=== PATIENT | female | born 1950 | race Caucasian/White ===

== ENCOUNTER 2021-11-04 18:16 | Emergency (ER) | payer BC, SELFPAY ==
[~2021-11-04] VITALS: Ht 160 cm; Wt 54.4 kg
[~2021-11-04 18:16] MED LIST: BUSP5TAB3 PO; LEVO25TA7 PO; TRAZ-250 PO
[2021-11-04 18:25] VITALS: BP_SYST 156
[2021-11-04] MEDS ORDERED: ASPIRIN 81 MG TAB.CHEW PO ONE (19:15)
[2021-11-04] MEDS ORDERED: PANTOPRAZOLE SODIUM 40 MG/VIAL (PROTONIX) IVP ONE (19:15)
[2021-11-04 19:16] LABS: BASOPHILS # (AUTO) 0.1 K/uL (0.0-0.2); BASOPHILS % (AUTO) 0.8 % (0.0-2.0); EOSINOPHILS # (AUTO) 0.1 K/uL (0.0-0.4); EOSINOPHILS % (AUTO) 1.4 % (0.0-4.0); HEMATOCRIT 42.7 % (36-48); HEMOGLOBIN 14.8 g/dL (12.0-16.0); LYMPHOCYTES # (AUTO) 1.4 K/uL (1.0-5.5); LYMPHOCYTES % (AUTO) 18.1 % (20.5-51.5); MEAN CORPUSCULAR HEMOGLOBIN 32 pg (27-31); MEAN CORPUSCULAR HGB CONC 35 % (32-36); MEAN CORPUSCULAR VOLUME 94 fL (79.0-98.0); MONOCYTES # (AUTO) 0.5 K/uL (0.0-1.0); MONOCYTES % (AUTO) 7.2 % (1.7-9.3); NEUTROPHILS # (AUTO) 5.5 K/uL (1.8-7.7); NEUTROPHILS % (AUTO) 72.5 % (40.0-70.0); PLATELET COUNT (AUTO) 250 K/uL (130-430); RED BLOOD CELL COUNT(AUTO) 4.55 MIL/uL (4.2-6.2); RED CELL DISTRIBUTION WIDTH 12.8 % (9.0-15.0); WHITE BLOOD COUNT (AUTO) 7.6 K/uL (4.8-10.8)
[2021-11-04 19:22] LABS: ANION GAP 8 (5-15); CALCIUM 8.8 mg/dL (8.4-11.0); CHLORIDE 104 mmol/L (98-107); CREATININE 0.65 mg/dL (0.55-1.30); GLUCOSE 86 mg/dL (70-99); POTASSIUM 3.5 mmol/L (3.5-5.1); SODIUM SERUM 137 mmol/L (136-145); UREA NITROGEN, BLOOD 24 mg/dL (8-21)
[2021-11-04 19:24] LABS: BILIRUBIN,URINE NEGATIVE (NEGATIVE); BLOOD, URINE NEGATIVE (NEGATIVE); COLOR,URINE YELLOW (YELLOW); GLUCOSE,URINE NEGATIVE (NEGATIVE); KETONES,URINE NEGATIVE (NEGATIVE); LEUKOCYTE ESTERASE ,URINE NEGATIVE (NEGATIVE); NITRITE, URINE NEGATIVE (NEGATIVE); PH,URINE 7.5 (5.0-8.0); PROTEIN URINE NEGATIVE (NEGATIVE); UROBILINOGEN,URINE 0.2 (0.2-1.0)
[2021-11-04 19:30] LABS: ALANINE AMINOTRANSFERASE 26 U/L (12-78); ALBUMIN 3.4 g/dL (3.4-4.8); ASPARTATE AMINOTRANSFERASE 21 U/L (10-37); TOTAL BILIRUBIN 0.2 mg/dL (0.0-1.0)
[2021-11-04 19:36] LABS: CLARITY/URINE CLOUDY (CLEAR)
[2021-11-04 19:37] LABS: BACTERIA,URINE RARE /HPF (None Seen); RBC,URINE 0-3 /HPF (0-3); WBC,URINE 0-3 /HPF (0-3)
[2021-11-04 19:38] LABS: MUCUS,URINE None Seen /LPF (None Seen); URINE AMORPHOUS PHOSPHATES 2+ /HPF (None Seen)
[2021-11-04] MEDS ORDERED: ONDANSETRON HCL 4 MG/2 ML VIAL IVP ONE (21:00)
[2021-11-04] MEDS ORDERED: PRO40 PO (22:27)
[2021-11-04 22:31] VITALS: BP_SYST 133
== END 2021-11-04 22:31 | disposition home or self-care (01) ==
LOC: SED 18:16
DX: R07.2 Precordial pain (principal); E03.9 Hypothyroidism, unspecified; Z79.899 Other long term (current) drug therapy
CPT/HCPCS: 36415; 71045; 80053; 81000; 83880; 84484; 85025; 93005; 96374; 96375; 99285; C9113; J2405

== ENCOUNTER 2021-12-21 21:14 | Inpatient (IN) | payer BC, SELFPAY ==
[~2021-12-21] VITALS: Ht 160 cm; Wt 51.9 kg
[~2021-12-21 21:14] MED LIST changes: +PRO40 PO
[2021-12-21 21:37] VITALS: BP_SYST 105
[2021-12-21] MEDS ORDERED: DIPHENHYDRAMINE INJ 50 MG/ML VIAL IVP ONE (23:15)
[2021-12-21] MEDS ORDERED: ONDANSETRON HCL 4 MG/2 ML VIAL IVP ONE (23:15)
[2021-12-21] MEDS ORDERED: LORazepam 2 MG/ML VIAL IVP ONE (23:15)
[2021-12-21] MEDS ORDERED: NACL 0.9% 1,000 ML IV ONE (23:15)
[2021-12-21] MEDS ORDERED: ONDANSETRON 4 MG ODT TAB ONE (23:30)
[2021-12-21] MEDS ORDERED: ONDANSETRON 4 MG ODT TAB PO ONE (23:45)
[2021-12-21 23:47] LABS: HEMOGLOBIN 15.4 g/dL (12.0-16.0); WHITE BLOOD COUNT (AUTO) 6.6 K/uL (4.8-10.8)
[2021-12-21 23:58] LABS: BASOPHILS % (AUTO) 0.7 % (0.0-2.0); EOSINOPHILS # (AUTO) 0.1 K/uL (0.0-0.4); EOSINOPHILS % (AUTO) 1.7 % (0.0-4.0); HEMATOCRIT 45.5 % (36-48); LYMPHOCYTES # (AUTO) 1.6 K/uL (1.0-5.5); LYMPHOCYTES % (AUTO) 23.6 % (20.5-51.5); MEAN CORPUSCULAR HEMOGLOBIN 32 pg (27-31); MEAN CORPUSCULAR HGB CONC 34 % (32-36); MEAN CORPUSCULAR VOLUME 94 fL (79.0-98.0); MONOCYTES # (AUTO) 0.6 K/uL (0.0-1.0); MONOCYTES % (AUTO) 8.7 % (1.7-9.3); NEUTROPHILS # (AUTO) 4.3 K/uL (1.8-7.7); NEUTROPHILS % (AUTO) 65.3 % (40.0-70.0); PLATELET COUNT (AUTO) 248 K/uL (130-430); RED BLOOD CELL COUNT(AUTO) 4.85 MIL/uL (4.2-6.2); RED CELL DISTRIBUTION WIDTH 13.1 % (9.0-15.0)
[2021-12-22 00:18] LABS: ALANINE AMINOTRANSFERASE 23 U/L (12-78); ALBUMIN 3.6 g/dL (3.4-4.8); ANION GAP 6 (5-15); ASPARTATE AMINOTRANSFERASE 18 U/L (10-37); CALCIUM 9.1 mg/dL (8.4-11.0); CHLORIDE 105 mmol/L (98-107); CREATININE 0.57 mg/dL (0.55-1.30); GLUCOSE 95 mg/dL (70-99); POTASSIUM 3.5 mmol/L (3.5-5.1); SODIUM SERUM 140 mmol/L (136-145); TOTAL BILIRUBIN 0.3 mg/dL (0.0-1.0); UREA NITROGEN, BLOOD 21 mg/dL (8-21)
[2021-12-22] MEDS ORDERED: LORazepam 2 MG/ML VIAL ONE (02:22)
[2021-12-22] MEDS ORDERED: LORazepam 2 MG/ML VIAL IVP ONE ×2 (02:45→17:00)
[2021-12-22] MEDS ORDERED: MORPHINE 2 MG/ML INJ. SYRINGE IVP PRN ×2 (04:30)
[2021-12-22 04:32] LABS: BILIRUBIN,URINE NEGATIVE (NEGATIVE); BLOOD, URINE NEGATIVE (NEGATIVE); CLARITY/URINE CLEAR (CLEAR); COLOR,URINE YELLOW (YELLOW); GLUCOSE,URINE NEGATIVE (NEGATIVE); KETONES,URINE NEGATIVE (NEGATIVE); LEUKOCYTE ESTERASE ,URINE NEGATIVE (NEGATIVE); NITRITE, URINE NEGATIVE (NEGATIVE); PROTEIN URINE NEGATIVE (NEGATIVE); UROBILINOGEN,URINE 0.2 (0.2-1.0)
[2021-12-22] MEDS: NITROGLYCERIN 0.4 MG TAB.SUBL SL PRN ×2 (04:52→05:45)
[2021-12-22 05:37] VITALS: BP_SYST 133
[2021-12-22] MEDS ORDERED: LORA-258 PO (06:24)
[2021-12-22 08:00] VITALS: BP_SYST 138
[2021-12-22] MEDS ORDERED: LEVOTHYROXINE SODIUM 0.025 MG TABLET PO ONE (08:00)
[2021-12-22 15:59] VITALS: BP_SYST 110
[2021-12-22 16:00] VITALS: BP_SYST 110
[2021-12-22 16:10] VITALS: BP_SYST 110
[2021-12-22] MEDS ORDERED: ONDANSETRON HCL 4 MG/2 ML VIAL IVP ONE (17:00)
[2021-12-22] MEDS ORDERED: ONDA-8 TL (17:41)
[2021-12-22] MEDS ORDERED: NITSL SL (17:41)
[2021-12-23] MEDS ORDERED: LEVOTHYROXINE SODIUM 0.025 MG TABLET PO SCH (07:00)
== END 2021-12-22 18:15 | disposition home or self-care (01) | DRG 880 ==
LOC: SED 21:14 → STU 12-22 03:45
PROVIDERS: ADMIT General Practice; ATTEND General Practice
DX: F41.1 Generalized anxiety disorder (principal); G90.9 Disorder of the autonomic nervous system, unspecified; E03.9 Hypothyroidism, unspecified; R00.1 Bradycardia, unspecified; G47.00 Insomnia, unspecified; R42 Dizziness and giddiness; Z20.822 Contact with and (suspected) exposure to COVID-19; I25.2 Old myocardial infarction; Z79.899 Other long term (current) drug therapy; Z86.16 Personal history of COVID-19; Z87.891 Personal history of nicotine dependence
CPT/HCPCS: 36415; 70450-TC; 71045; 76376; 80053; 81003; 83880; 84443; 84484; 85025; 85379; 93005; 96374; 99285; G0378; J2060; J2405; Q0162

== ENCOUNTER 2022-02-13 16:26 | Emergency (ER) | payer BC ==
[~2022-02-13] VITALS: Ht 160 cm; Wt 50.8 kg
[~2022-02-13 16:26] MED LIST changes: +LORA-258 PO; +NITSL SL; +ONDA-8 TL; -PRO40 PO; -TRAZ-250 PO
[2022-02-13 16:35] VITALS: BP_SYST 122
--- NOTE | 2022-02-13 16:35 | NUR ---
Patient to ER bed 5 to gown for evaluation. Side rails up. Report given to Ki.
--- NOTE | 2022-02-13 16:36 | NUR ---
ER at bedside examining patient.
[2022-02-13 17:10] LABS: BASOPHILS # (AUTO) 0.1 K/uL (0.0-0.2); BASOPHILS % (AUTO) 1.1 % (0.0-2.0); EOSINOPHILS # (AUTO) 0.1 K/uL (0.0-0.4); EOSINOPHILS % (AUTO) 1.2 % (0.0-4.0); HEMATOCRIT 45.7 % (36-48); HEMOGLOBIN 15.8 g/dL (12.0-16.0); LYMPHOCYTES # (AUTO) 1.3 K/uL (1.0-5.5); LYMPHOCYTES % (AUTO) 17.9 % (20.5-51.5); MEAN CORPUSCULAR HEMOGLOBIN 32 pg (27-31); MEAN CORPUSCULAR HGB CONC 35 % (32-36); MEAN CORPUSCULAR VOLUME 93 fL (79.0-98.0); MONOCYTES # (AUTO) 0.5 K/uL (0.0-1.0); MONOCYTES % (AUTO) 6.6 % (1.7-9.3); NEUTROPHILS # (AUTO) 5.5 K/uL (1.8-7.7); NEUTROPHILS % (AUTO) 73.2 % (40.0-70.0); PLATELET COUNT (AUTO) 251 K/uL (130-430); RED CELL DISTRIBUTION WIDTH 12.4 % (9.0-15.0); WHITE BLOOD COUNT (AUTO) 7.5 K/uL (4.8-10.8)
[2022-02-13 17:26] LABS: ANION GAP 7 (5-15); CALCIUM 9.1 mg/dL (8.4-11.0); CHLORIDE 105 mmol/L (98-107); CREATININE 0.72 mg/dL (0.55-1.30); GLUCOSE 99 mg/dL (70-99); SODIUM SERUM 139 mmol/L (136-145); UREA NITROGEN, BLOOD 15 mg/dL (8-21)
[2022-02-13 17:36] LABS: ALANINE AMINOTRANSFERASE 23 U/L (12-78); ALBUMIN 3.6 g/dL (3.4-4.8); ASPARTATE AMINOTRANSFERASE 26 U/L (10-37); TOTAL BILIRUBIN 0.3 mg/dL (0.0-1.0)
--- NOTE | 2022-02-13 17:58 | NUR ---
ER Dr. Graham at bedside examining patient.
[2022-02-13] MEDS ORDERED: LORA-258 PO (18:00)
[2022-02-13] MEDS ORDERED: LORazepam 1 MG TABLET PO ONE (18:00)
== END 2022-02-13 18:38 | disposition home or self-care (01) ==
LOC: SED 16:26
DX: G40.A09 Absence epileptic syndrome, not intractable, without status epilepticus (principal); E03.9 Hypothyroidism, unspecified; Z79.899 Other long term (current) drug therapy
CPT/HCPCS: 36415; 70450-TC; 71045; 76376; 80053; 83605; 84484; 85025; 93005; 99285

== ENCOUNTER 2022-03-06 22:12 | Emergency (ER) | payer BC ==
[~2022-03-06] VITALS: Ht 160 cm; Wt 50.8 kg
[2022-03-06 22:22] VITALS: BP_SYST 121
[2022-03-06] MEDS ORDERED: LORazepam 2 MG/ML VIAL IVP ONE (23:15)
[2022-03-06] MEDS ORDERED: NACL 0.9% 1,000 ML IV ONE (23:15)
[2022-03-06] MEDS ORDERED: dilTIAZem HCL IVP 5 MG/ML VIAL IVP ONE (23:15)
[2022-03-06 23:51] LABS: ANION GAP 8 (5-15); CALCIUM 8.5 mg/dL (8.4-11.0); CHLORIDE 104 mmol/L (98-107); CREATININE 0.76 mg/dL (0.55-1.30); GLUCOSE 121 mg/dL (70-99); POTASSIUM 3.5 mmol/L (3.5-5.1); SODIUM SERUM 138 mmol/L (136-145); UREA NITROGEN, BLOOD 19 mg/dL (8-21)
[2022-03-06 23:59] LABS: BASOPHILS % (AUTO) 0.3 % (0.0-2.0); EOSINOPHILS # (AUTO) 0.3 K/uL (0.0-0.4); EOSINOPHILS % (AUTO) 4.6 % (0.0-4.0); HEMATOCRIT 40.5 % (36-48); HEMOGLOBIN 14.3 g/dL (12.0-16.0); LYMPHOCYTES # (AUTO) 1.7 K/uL (1.0-5.5); LYMPHOCYTES % (AUTO) 22.5 % (20.5-51.5); MEAN CORPUSCULAR HEMOGLOBIN 33 pg (27-31); MEAN CORPUSCULAR HGB CONC 35 % (32-36); MEAN CORPUSCULAR VOLUME 94 fL (79.0-98.0); MONOCYTES # (AUTO) 0.7 K/uL (0.0-1.0); MONOCYTES % (AUTO) 8.7 % (1.7-9.3); NEUTROPHILS # (AUTO) 4.8 K/uL (1.8-7.7); NEUTROPHILS % (AUTO) 63.9 % (40.0-70.0); PLATELET COUNT (AUTO) 244 K/uL (130-430); RED BLOOD CELL COUNT(AUTO) 4.32 MIL/uL (4.2-6.2); RED CELL DISTRIBUTION WIDTH 12.4 % (9.0-15.0); WHITE BLOOD COUNT (AUTO) 7.6 K/uL (4.8-10.8)
[2022-03-07 00:05] LABS: ALANINE AMINOTRANSFERASE 23 U/L (12-78); ASPARTATE AMINOTRANSFERASE 21 U/L (10-37); THYROID STIMULATING HORMONE 3.18 uIu/mL (0.36-3.74); TOTAL BILIRUBIN 0.3 mg/dL (0.0-1.0)
[2022-03-07] MEDS ORDERED: APIXABAN 2.5 MG TABLET PO ONE (00:45)
[2022-03-07] MEDS ORDERED: APIXABAN 2.5 MG TABLET ONE (01:46)
[2022-03-07] MEDS ORDERED: DILTIAZEM HCL 60 MG TABLET ONE (01:52)
[2022-03-07] MEDS ORDERED: DILTIAZEM HCL 120 MG CAP.SR.24H PO ONE ×2 (02:00→02:13)
[2022-03-07] MEDS ORDERED: DILT120C89 PO (02:36)
[2022-03-07] MEDS ORDERED: APIX5TAB4 PO (02:36)
[2022-03-07] MEDS ORDERED: ACETAMINOPHEN 500 MG TABLET PO ONE (06:30)
[2022-03-07] MEDS ORDERED: ACETAMINOPHEN 500 MG TABLET ONE (06:42)
[2022-03-07 09:22] VITALS: BP_SYST 125
== END 2022-03-07 09:19 | disposition home or self-care (01) ==
LOC: SED 22:12
DX: I48.0 Paroxysmal atrial fibrillation (principal); E03.9 Hypothyroidism, unspecified; Z79.899 Other long term (current) drug therapy
CPT/HCPCS: 99285; 71045; 87426; 80053; 83880; 84443; 85025; 85379; 84484; 36415; 93005 ×2; 96374; 96361; 96375; J3490 ×2; J2060; J7030

== ENCOUNTER 2023-07-04 11:31 | Emergency (ER) | payer BC ==
[~2023-07-04] VITALS: Ht 157.5 cm; Wt 49.0 kg
[~2023-07-04 11:31] MED LIST changes: +APIX5TAB4 PO; +DILT120C89 PO
[2023-07-04] MEDS ORDERED: NACL 0.9% 1,000 ML IV ONE (12:15)
[2023-07-04 12:38] VITALS: BP_SYST 146; PULSE 59; RESP 18; TEMP 97.6; O2SAT 98
[2023-07-04 12:44] LABS: BASOPHILS # (AUTO) 0.1 K/uL (0.0-0.2); EOSINOPHILS # (AUTO) 0.1 K/uL (0.0-0.4); EOSINOPHILS % (AUTO) 0.9 % (0.0-4.0); HEMATOCRIT 46.1 % (36-48); HEMOGLOBIN 15.6 g/dL (12.0-16.0); LYMPHOCYTES # (AUTO) 1.6 K/uL (1.0-5.5); LYMPHOCYTES % (AUTO) 17.4 % (20.5-51.5); MEAN CORPUSCULAR HEMOGLOBIN 32 pg (27-31); MEAN CORPUSCULAR HGB CONC 34 % (32-36); MEAN CORPUSCULAR VOLUME 95 fL (79.0-98.0); MONOCYTES # (AUTO) 0.6 K/uL (0.0-1.0); MONOCYTES % (AUTO) 6.3 % (1.7-9.3); NEUTROPHILS % (AUTO) 74.4 % (40.0-70.0); PLATELET COUNT (AUTO) 278 K/uL (130-430); RED BLOOD CELL COUNT(AUTO) 4.86 MIL/uL (4.2-6.2); RED CELL DISTRIBUTION WIDTH 12.5 % (9.0-15.0); WHITE BLOOD COUNT (AUTO) 9.5 K/uL (4.8-10.8)
[2023-07-04 13:01] LABS: ALANINE AMINOTRANSFERASE 30 U/L (12-78); ALBUMIN 3.5 g/dL (3.4-4.8); ANION GAP 4 (5-15); ASPARTATE AMINOTRANSFERASE 20 U/L (10-37); CARBON DIOXIDE 30 mmol/L (23-29); CHLORIDE 105 mmol/L (98-107); CREATININE 0.62 mg/dL (0.55-1.30); GLUCOSE 104 mg/dL (74-106); POTASSIUM 4.2 mmol/L (3.5-5.1); SODIUM SERUM 139 mmol/L (136-145); TOTAL BILIRUBIN 0.4 mg/dL (0.0-1.0); UREA NITROGEN, BLOOD 13 mg/dL (8-21)
[2023-07-04 15:06] LABS: BILIRUBIN,URINE NEGATIVE (NEGATIVE); BLOOD, URINE NEGATIVE (NEGATIVE); CLARITY/URINE CLEAR (CLEAR); COLOR,URINE YELLOW (YELLOW); GLUCOSE,URINE NEGATIVE (NEGATIVE); KETONES,URINE NEGATIVE (NEGATIVE); LEUKOCYTE ESTERASE ,URINE NEGATIVE (NEGATIVE); NITRITE, URINE NEGATIVE (NEGATIVE); PROTEIN URINE NEGATIVE (NEGATIVE); UROBILINOGEN,URINE 0.2 (0.2-1.0)
[2023-07-04] MEDS ORDERED: LORA-259 PO (15:59)
== END 2023-07-04 16:15 | disposition home or self-care (01) ==
LOC: SED 11:31
DX: F41.9 Anxiety disorder, unspecified (principal); R53.1 Weakness; R42 Dizziness and giddiness; Z79.899 Other long term (current) drug therapy
CPT/HCPCS: 36415; 70450-TC; 76376; 80053; 81003; 85025; 99284

== ENCOUNTER 2023-07-11 12:53 | Emergency (ER) | payer BC ==
[~2023-07-11] VITALS: Ht 160 cm; Wt 49.4 kg
[~2023-07-11 12:53] MED LIST changes: +LORA-259 PO
[2023-07-11 13:00] VITALS: BP_SYST 108; PULSE 63; RESP 16; TEMP 96.9; O2SAT 98
[2023-07-11] MEDS ORDERED: OLANZapine 5 MG TAB.RAPDIS PO ONE (14:45)
[2023-07-11] MEDS ORDERED: ACETAMINOPHEN 500 MG TABLET PO ONE (14:45)
[2023-07-11] MEDS ORDERED: OLANZapine 5 MG TABLET PO ONE (15:00)
[2023-07-11 15:43] LABS: BASOPHILS # (AUTO) 0.1 K/uL (0.0-0.2); BASOPHILS % (AUTO) 0.8 % (0.0-2.0); EOSINOPHILS # (AUTO) 0.1 K/uL (0.0-0.4); EOSINOPHILS % (AUTO) 0.9 % (0.0-4.0); HEMATOCRIT 44.5 % (36-48); HEMOGLOBIN 14.8 g/dL (12.0-16.0); LYMPHOCYTES # (AUTO) 1.7 K/uL (1.0-5.5); LYMPHOCYTES % (AUTO) 16.5 % (20.5-51.5); MEAN CORPUSCULAR HEMOGLOBIN 32 pg (27-31); MEAN CORPUSCULAR HGB CONC 33 % (32-36); MEAN CORPUSCULAR VOLUME 95 fL (79.0-98.0); MONOCYTES # (AUTO) 0.7 K/uL (0.0-1.0); MONOCYTES % (AUTO) 7.1 % (1.7-9.3); NEUTROPHILS # (AUTO) 7.6 K/uL (1.8-7.7); NEUTROPHILS % (AUTO) 74.7 % (40.0-70.0); PLATELET COUNT (AUTO) 306 K/uL (130-430); RED CELL DISTRIBUTION WIDTH 12.3 % (9.0-15.0); WHITE BLOOD COUNT (AUTO) 10.1 K/uL (4.8-10.8)
[2023-07-11 15:54] LABS: ANION GAP 8 (5-15); CALCIUM 9.2 mg/dL (8.4-11.0); CARBON DIOXIDE 28 mmol/L (23-29); CHLORIDE 103 mmol/L (98-107); CREATININE 0.74 mg/dL (0.55-1.30); GLUCOSE 99 mg/dL (74-106); POTASSIUM 3.7 mmol/L (3.5-5.1); SODIUM SERUM 139 mmol/L (136-145); UREA NITROGEN, BLOOD 18 mg/dL (8-21)
[2023-07-11 16:06] LABS: ALANINE AMINOTRANSFERASE 29 U/L (12-78); ALBUMIN 3.4 g/dL (3.4-4.8); ASPARTATE AMINOTRANSFERASE 19 U/L (10-37); TOTAL BILIRUBIN 0.4 mg/dL (0.0-1.0); TOTAL PROTEIN, SERUM 6.7 g/dL (6.4-8.3)
[2023-07-11] MEDS ORDERED: IPRATROPIUM/ALBUTEROL SULFATE 3 ML AMPUL.NEB (DUONEB) INH ONE (18:30)
[2023-07-11] MEDS ORDERED: ALBMDI INH (18:56)
[2023-07-11 19:34] VITALS: BP_SYST 134; PULSE 70; RESP 16; TEMP 98.4; O2SAT 98
== END 2023-07-11 19:34 | disposition home or self-care (01) ==
LOC: SED 12:53
DX: F41.9 Anxiety disorder, unspecified (principal); R06.00 Dyspnea, unspecified; R51.9 Headache, unspecified; J44.9 Chronic obstructive pulmonary disease, unspecified; Z79.899 Other long term (current) drug therapy
CPT/HCPCS: 36415; 70450-TC; 71045; 76376; 80053; 83880; 84484; 85025; 93005; 94640; 99285